=== PATIENT | female | born 1935 | race Caucasian/White ===

== ENCOUNTER 2017-05-11 05:56 | Emergency (ER) | payer MEDICARE, BC ==
[2017-05-11 06:04] VITALS: BP 167/106
[2017-05-11] MEDS ORDERED: Magnesium Citrate Solution 296 ML Bottle PO ONE (06:44)
--- NOTE | 2017-05-11 06:47 | EDM.PDOC ---
ED HPI GENERAL MEDICAL PROBLEM - General Chief Complaint: Gastrointestinal Problem Stated Complaint: CONSTIPATED Time Seen by Provider: 05/11/17 06:23 Source of Information: Reports: Patient, RN Notes Reviewed - History of Present Illness INITIAL COMMENTS - FREE TEXT/NARRATIVE: 81-year-old lady comes in with concerns about constipation. She has had long- standing difficulty with chronic constipation. She's been having just very small amounts of BM off and on for about the past week, not as much his usual. Her regular provider is out of town. Going into the she wants to deal with this now. No abdominal pain or cramping. No nausea or vomiting. She's been eating and drinking satisfactorily. She admits that she likely does not drink enough water daily basis. No other concerns at this time. Abdominal Pain Score (Numeric/FACES): 5 - Related Data Allergies Allergy/AdvReac Type Severity Reaction Status Date / Time No Known Allergies Allergy Verified 05/11/17 06:04 Home Meds: Home Meds ClonazePAM [KlonoPIN] 0.5 mg PO BID 11/21/13 [History] Omeprazole 20 mg PO DAILY 11/21/13 [History] Risedronate [Actonel] 35 mg PO ASDIRECTED 11/21/13 [History] Aspirin/Acetaminophen/Caffeine [Ra Pain Reliever Tablet] 2 each PO Q4H PRN 05/11 [History] Calcium Carbonate/Vitamin D3 [Calcium 500 + Vit D 200 Tablet] 1 each PO BID [History] Ondansetron [Zofran ODT] 4 mg PO Q6H PRN 05/11/17 [History] Polyethylene Glycol 3350 [MiraLAX] 17 gm PO DAILY 05/11/17 [History] Sennosides/Docusate Sodium [Senna S Tablet] 1 each PO DAILY 05/11/17 [History] Venlafaxine [Effexor XR] 150 mg PO DAILY 05/11/17 [History] busPIRone [Buspar] 5 mg PO BID 05/11/17 [History] traMADol HCl [Tramadol HCl] 50 mg PO Q6H PRN 05/11/17 [History] Past Medical History Gastrointestinal History: Reports: Chronic Constipation, Hiatal Hernia Neurological History: Reports: Other (See Below) Other Neuro History: brain tumor Psychiatric History: Reports: Anxiety, Depression Oncologic (Cancer) History: Reports: Brain, Breast - Past Surgical History Female Surgical History: Reports: Hysterectomy Social & Family History - Tobacco Use Smoking Status *Q: Never Smoker Second Hand Smoke Exposure: No - Alcohol Use Days Per Week of Alcohol Use: 1 Number of Drinks Per Day: 1 Total Drinks Per Week: 1 - Recreational Drug Use Recreational Drug Use: No ED ROS GENERAL - Review of Systems Review Of Systems: See Below Constitutional: Denies: Fever, Chills HEENT: Reports: No Symptoms Respiratory: Denies: Shortness of Breath, Cough Cardiovascular: Denies: Chest Pain GI/Abdominal: Reports: Constipation. Denies: Abdominal Pain, Nausea, Vomiting Musculoskeletal: Reports: No Symptoms Skin: Reports: No Symptoms Neurological: Denies: Trouble Speaking, Weakness ED EXAM, GI/ABD - Physical Exam Exam: See Below General Appearance: Alert, No Apparent Distress Throat/Mouth: Normal Inspection, Normal Oropharynx Head: No: Facial Swelling Neck: Supple, Full Range of Motion Respiratory/Chest: No Respiratory Distress, Lungs Clear Cardiovascular: Regular Rate, Rhythm GI/Abdominal Exam: Soft, Non-Tender. No: Guarding Rectal (Female) Exam: Normal Exam, Normal Rectal Tone, Other (Small amount of soft brown stool present, no unusual mass or tenderness palpable) Neurological: Alert, No Motor/Sensory Deficits Skin Exam: Warm, Dry, Normal Color Course - Vital Signs Last Recorded V/S: Last Vital Signs Temp 97.7 F 05/11/17 05:59 Pulse 89 05/11/17 05:59 Resp 17 05/11/17 05:59 BP 167/106 H 05/11/17 05:59 Pulse Ox 97 05/11/17 05:59 - Orders/Labs/Meds Meds: Medications Discontinued Medications Generic Name Dose Route Start Last Admin Trade Name Freq PRN Reason Stop Dose Admin Magnesium Citrate 296 ml 05/11/17 06:44 Citrate Of Magnesia PO 05/11/17 06:45 ONETIME ONE Departure - Departure Time of Disposition: 06:44 Disposition: Home, Self-Care 01 Condition: Fair Clinical Impression: Constipation - Discharge Information Instructions: Constipation, Adult Referrals: James Cooley Jr, MD [Primary Care Provider] - Forms: ED Department Discharge Additional Instructions: Drink plenty of water to maintain hydration, continue prunes and prune juice, go ahead and stop the senna for now, I do recommend he take a stool softener Colace available OTC once or twice daily on a regular basis, go back to taking MiraLAX daily as needed. Follow-up clinic as needed if symptoms not improving or return to ED as needed if symptoms worsening in any way.
== END 2017-05-11 06:54 | disposition home or self-care (01) ==
LOC: JD.ED 05:56
DX: K59.00 Constipation, unspecified (principal); F41.9 Anxiety disorder, unspecified; F32.9 Major depressive disorder, single episode, unspecified; Z90.710 Acquired absence of both cervix and uterus; Z79.82 Long term (current) use of aspirin; Z79.899 Other long term (current) drug therapy
CPT/HCPCS: 99283; A9270

== ENCOUNTER 2017-07-19 13:55 | Emergency (ER) | payer MEDICARE, BC ==
[2017-07-19 14:03] VITALS: BP 144/89
--- NOTE | 2017-07-19 14:21 | EDM.PDOC ---
ED HPI GENERAL MEDICAL PROBLEM - General Chief Complaint: Lower Extremity Injury/Pain Stated Complaint: RIGHT LEG INJURY Time Seen by Provider: 07/19/17 14:01 Source of Information: Reports: Patient, Family () History Limitations: Reports: Physical Impairment (Dysarthric speech, following brain tumor excision) - History of Present Illness INITIAL COMMENTS - FREE TEXT/NARRATIVE: The patient states that she rolled out of bed sometime around 11:30 to noon today, somehow falling onto her right leg. She states that it happened so fast, she is not sure how exactly it happened. She presents with pain to her mid- right leg. She states that due to peripheral neuropathy, she cannot feel too much with her leg, and it does not hurt much while she is lying down, however, she is unable to bear weight. No prior right leg injury, and the patient is otherwise uninjured today. The patient's last oral solid food intake was around 13:00 this afternoon. The patient's PCP is Dr. James Cooley. Right Lower Leg Pain Score (Numeric/FACES): 6 - Related Data Allergies Allergy/AdvReac Type Severity Reaction Status Date / Time No Known Allergies Allergy Verified 07/19/17 14:03 Home Meds: Home Meds ClonazePAM [KlonoPIN] 0.5 mg PO BID 11/21/13 [History] Omeprazole 20 mg PO DAILY 11/21/13 [History] Aspirin/Acetaminophen/Caffeine [Ra Pain Reliever Tablet] 2 each PO Q4H PRN 05/11 [History] Calcium Carbonate/Vitamin D3 [Calcium 500 + Vit D 200 Tablet] 1 each PO BID [History] Ondansetron [Zofran ODT] 4 mg PO Q6H PRN 05/11/17 [History] Polyethylene Glycol 3350 [MiraLAX] 17 gm PO DAILY 05/11/17 [History] Sennosides/Docusate Sodium [Senna S Tablet] 1 each PO DAILY 05/11/17 [History] busPIRone [Buspar] 5 mg PO BID 05/11/17 [History] traMADol HCl [Tramadol HCl] 50 mg PO Q6H PRN 05/11/17 [History] Acetaminophen/HYDROcodone [Erie 325-5 MG] 1 - 2 tab PO Q6H PRN #20 tablet 07/19 [Rx] Aspirin 325 mg PO DAILY 07/19/17 [History] DULoxetine [Cymbalta] 20 mg PO BEDTIME 07/19/17 [History] Gabapentin [Neurontin] 400 mg PO TID 07/19/17 [History] Linaclotide [Linzess] 145 mcg PO DAILY 07/19/17 [History] Lubiprostone [Amitiza] 24 mcg PO BIDMEALS 07/19/17 [History] Risedronate Sodium 35 mg PO WEEKLY 07/19/17 [History] Past Medical History Gastrointestinal History: Reports: Hiatal Hernia Neurological History: Reports: Neuropathy, Peripheral Psychiatric History: Reports: Anxiety, Depression 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), Breast (left) - Past Surgical History HEENT Surgical History: Reports: Cataract Surgery, Tonsillectomy Female Surgical History: Reports: Hysterectomy, Salpingo-Oophorectomy Oncologic Surgical History: Reports: Mastectomy (left), Other (See Below) ( Astrocytoma excision January 2015) Social & Family History - Tobacco Use Smoking Status *Q: Never Smoker Second Hand Smoke Exposure: No - Caffeine Use Caffeine Use: Reports: None - Alcohol Use Alcohol Use History: Yes Alcohol Use Frequency: Socially - Recreational Drug Use Recreational Drug Use: No - Living Situation & Occupation Living situation: Reports: , with Spouse Occupation: Retired Review of Systems - Review of Systems Review Of Systems: ROS reveals no pertinent complaints other than HPI. ED EXAM, GENERAL - Physical Exam Exam: See Below Exam Limited By: No Limitations General Appearance: Alert, WD/WN, No Apparent Distress Extremities: Other (Considerable swelling and ecchymosis noted to the proximal anterolateral right leg. No significant tenderness. No obvious bony deformity. Vascular status of the right lower extremity appears to be intact.) Course - Vital Signs Last Recorded V/S: Last Vital Signs Temp 36.6 C 07/19/17 14:00 Pulse 80 07/19/17 17:11 Resp 18 07/19/17 17:11 BP 144/89 H 07/19/17 14:00 Pulse Ox 96 07/19/17 17:11 - Orders/Labs/Meds Orders: Active Orders 24 hr Category Date Time Status Tibia Fibula Rt [CR] Stat Exams 07/19/17 14:14 Taken DME for Discharge [COMM] Stat Oth 07/19/17 16:09 Ordered Meds: Medications Discontinued Medications Generic Name Dose Route Start Last Admin Trade Name Jacquelyn PRN Reason Stop Dose Admin Hydromorphone HCl 0.5 mg 07/19/17 14:41 07/19/17 15:02 Dilaudid IVPUSH 07/19/17 14:42 0.5 mg ONETIME ONE Administration Sodium Chloride 1,000 mls @ 100 mls/hr 07/19/17 14:45 07/19/17 15:08 Normal Saline IV 100 mls/hr ASDIRECTED ABY Administration Ondansetron HCl 4 mg 07/19/17 14:41 07/19/17 15:01 Zofran IVPUSH 07/19/17 14:42 4 mg ONETIME ONE Administration - Re-Assessments/Exams Free Text/Narrative Re-Assessment/Exam: 07/19/17 14:34 4-view radiographs of the right tibia and fibula appear to demonstrate a longitudinal fracture of the proximal tibia, perhaps extending to the tibial plateau, although this is only seen on the lateral view. No other bony injury is identified. Formal read per the Radiologist pending. To further evaluate the potential tibial fracture, I have ordered a CT scan of the right leg. 07/19/17 14:39 The above plan was discussed with the patient and her . The patient is stating that she is starting to develop more significant leg pain and nausea. I have asked the nurse to place an IV, and will order some Dilaudid, Zofran, and IV fluid. We will keep her npo. 07/19/17 16:04 CT of the right tibia and fibula is read by Dr. Arita as: 1. Depressed lateral tibial plateau fracture with comminution. 2. Additional fracture extension from the lateral tibial plateau more distally within the lateral cortex which is nondisplaced and stops at approximately the junction of the mid and proximal one third diaphysis. 3. Soft tissue swelling. Other incidental findings. 07/19/17 16:[address] English at 16:06. Because the fracture is nondisplaced, he does not believe it will likely require surgery. He is recommending a knee immobilizer and crutches, and have the patient follow-up with him tomorrow. He can prescribe a wheelchair at that time, if necessary. 07/19/17 16:17 The above plan was discussed with the patient and her . The patient states that due to her brain surgery, she is not coordinated enough to be able to use crutches, a walker, or cane, and will need a wheelchair. We are endeavoring to see if [employer] can deliver a wheelchair tonight. The patient will require a wheelchair because her depressed tibial plateau fracture will prevent her from weightbearing on her right lower extremity, and she will be at significant risk of injuring herself if she attempts to balance herself on her left lower extremity alone. As above, she is not capable of using a walker or cane. The patient's indicated that the patient has been in a wheelchair in their home before, and that their home can accommodate a wheelchair. A wheelchair will significantly increase the ability of the patient to perform her ADLs. The patient is willing to use a wheelchair, and, in fact, requests a wheelchair. The patient is likely capable of manually using a wheelchair, however, her is available, as well. The patient will need pain medication. Due to her age and comorbidities, I recommended tramadol, however, the patient stated that she has developed tolerance to tramadol, and that it no longer works for her. I will therefore prescribe Erie. 07/19/17 16:25 Notified that [employer] is able to provide a wheelchair. The patient is going to get that now. Departure - Departure Time of Disposition: 16:19 Disposition: Home, Self-Care 01 Condition: Fair Clinical Impression: Tibial plateau fracture, right, Fracture of proximal end of right tibia - Discharge Information Prescriptions: Acetaminophen/HYDROcodone [Erie 325-5 MG] 1 - 2 tab PO Q6H PRN #20 tablet PRN Reason: Pain (Severe 7-10) Instructions: Tibial Plateau Fracture With Rehab-[facility] Referrals: James Cooley Jr, MD [Primary Care Provider] - Francesco English MD [Physician] - Forms: ED Department Discharge Additional Instructions: You were seen in the emergency room after falling and injuring her right leg. Workup in the ER included x-rays of your right leg, followed by a CT scan of your right leg. The x-rays and CT scan confirm that you have a nondisplaced fracture of your tibial plateau and proximal tibia. Your case was discussed with the Orthopedic Surgeon Dr. English. He does not feel that surgery is necessary, however, he does want you in a knee immobilizer, and you are not to bear weight on your right leg. You will need to get around using a wheelchair. You have been prescribed the narcotic pain reliever Erie. Take 1-2 tablets up to every 6 hours, as needed for pain. Erie will likely cause constipation, so consider taking a stool softener. DO NOT TAKE BOTH NORCO AND TRAMADOL. Follow-up with Dr. English in his office tomorrow, 07/20/2017. If any other problems, please do not hesitate to return to the ER. - My Orders Last 24 Hours: My Active Orders 07/19/17 14:14 Tibia Fibula Rt [CR] Stat 07/19/17 16:09 DME for Discharge [COMM] Stat - Assessment/Plan Last 24 Hours: My Active Orders 07/19/17 14:14 Tibia Fibula Rt [CR] Stat 07/19/17 16:09 DME for Discharge [COMM] Stat
[2017-07-19] MEDS ORDERED: Ondansetron 4 MG/2 ML SDV IVPUSH ONE (14:41)
[2017-07-19] MEDS ORDERED: HYDROmorphone 0.5 MG/0.5 ML SYRINGE IVPUSH ONE (14:41)
[2017-07-19] MEDS ORDERED: Sodium Chloride 0.9% 1,000 ML IV SCH (14:45)
--- NOTE | 2017-07-19 15:53 | CT ---
CT right tibia and fibula: Multiple axial sections were obtained to the right tibia and fibula. Reconstructed sagittal and coronal images were reviewed. Depressed lateral tibial plateau fracture is noted. Depression is noted by about 2.4 cm. Multiple small comminuted fragments are seen. There is a fracture line extending from the lateral tibial plateau fracture more inferior which is nondisplaced to down to approximately the junction of the mid and proximal one third diaphysis. Diffuse soft tissue swelling is noted. Degenerative cyst noted within the patella. Impression: 1. Depressed lateral tibial plateau fracture with comminution. 2. Additional fracture extension from the lateral tibial plateau more distally within the lateral cortex which is nondisplaced and stops at approximately the junction of the mid and proximal one third diaphysis. 3. Soft tissue swelling. Other incidental findings. Diagnostic code #3
--- NOTE | 2017-07-20 11:59 | CR ---
Right tibia and fibula: Two views of the right tibia and fibula were obtained. Impacted lateral tibial plateau fracture is seen. Additional nondisplaced fracture line extends more distal within the tibia. Soft tissue swelling is identified. No additional abnormality is appreciated. Impression: 1. Tibial fracture as noted above. Soft tissue swelling. Diagnostic code #3
== END 2017-07-19 17:12 | disposition home or self-care (01) ==
LOC: JD.ED 13:55
DX: S82.144A Nondisplaced bicondylar fracture of right tibia, initial encounter for closed fracture (principal); Z79.899 Other long term (current) drug therapy; Z79.82 Long term (current) use of aspirin; W20.8XXA Other cause of strike by thrown, projected or falling object, initial encounter
CPT/HCPCS: 73590; 73700; 96361; 96374; 96375; 99284; J1170; J2405; J7040

== ENCOUNTER 2017-07-19 18:18 | Emergency (ER) | payer MEDICARE, BC ==
[2017-07-19 18:29] VITALS: BP 115/70
[2017-07-19] MEDS ORDERED: Sodium Chloride 0.9% 1,000 ML IV ONE (18:33)
[2017-07-19] MEDS ORDERED: Ondansetron 4 MG/2 ML SDV IVPUSH ONE (18:42)
--- NOTE | 2017-07-19 18:42 | EDM.PDOC ---
ED HPI GENERAL MEDICAL PROBLEM <Colten Mcpherson - Last Filed: 07/19/17 21:33> - General Source of Information: Reports: Patient, Family () History Limitations: Reports: No Limitations <Rodrigo Reyes - Last Filed: 07/20/17 18:58> - General Chief Complaint: Syncope Stated Complaint: [facility] Time Seen by Provider: 07/19/17 18:25 - History of Present Illness INITIAL COMMENTS - FREE TEXT/NARRATIVE: The patient was seen by me in this ED earlier this afternoon after essentially falling out of bed this morning, injuring her right leg. Workup included an x- ray and CT scan of her right leg, confirming a depressed lateral tibial plateau fracture with comminution and an additional fracture extending from the lateral tibial plateau more distally within the lateral cortex, stopping at the junction of the mid and proximal one third diaphysis. The patient was given a total of 0.5 mg Dilaudid and 4 mg Zofran while in the ED, along with normal saline at 100 mL/hr. After discussing the case with Dr. English, the patient was placed into a knee immobilizer, and arrangements were made for the patient to get a wheelchair. The patient was discharged home with a prescription for Moon 5/325. The patient's states that they filled the prescription for the Moon, however, the patient has not taken any. Once home, the patient's took the patient to the bathroom in her wheelchair. After using the bathroom, she was returned to the wheelchair, and as the patient's was backing the patient out of the bathroom, she faited. Her head fell backwards, and she became unresponsive. The patient's called 911. He is not sure how long the patient remained unresponsive. At no time did the patient fall out of the wheelchair, and she is not injured from this event. Here in the ED, the patient states that she does not feel well. She is complaining of nausea. She is found to be orthostatic. The patient's PCP is Dr. James Cooley. (Rodrigo Reyes) - Related Data Allergies Allergy/AdvReac Type Severity Reaction Status Date / Time No Known Allergies Allergy Verified 07/19/17 18:22 Home Meds: Home Meds ClonazePAM [KlonoPIN] 0.5 mg PO BID 11/21/13 [History] Omeprazole 20 mg PO DAILY 11/21/13 [History] Aspirin/Acetaminophen/Caffeine [Ra Pain Reliever Tablet] 2 each PO Q4H PRN 05/11 [History] Calcium Carbonate/Vitamin D3 [Calcium 500 + Vit D 200 Tablet] 1 each PO BID [History] Ondansetron [Zofran ODT] 4 mg PO Q6H PRN 05/11/17 [History] Polyethylene Glycol 3350 [MiraLAX] 17 gm PO DAILY 05/11/17 [History] Sennosides/Docusate Sodium [Senna S Tablet] 1 each PO DAILY 05/11/17 [History] busPIRone [Buspar] 5 mg PO BID 05/11/17 [History] traMADol HCl [Tramadol HCl] 50 mg PO Q6H PRN 05/11/17 [History] Acetaminophen/HYDROcodone [[place] 325-5 MG] 1 - 2 tab PO Q6H PRN #20 tablet 07/19 [Rx] Aspirin 325 mg PO DAILY 07/19/17 [History] DULoxetine [Cymbalta] 20 mg PO BEDTIME 07/19/17 [History] Gabapentin [Neurontin] 400 mg PO TID 07/19/17 [History] Linaclotide [Linzess] 145 mcg PO DAILY 07/19/17 [History] Lubiprostone [Amitiza] 24 mcg PO BIDMEALS 07/19/17 [History] Risedronate Sodium 35 mg PO WEEKLY 07/19/17 [History] Past Medical History HEENT History: Reports: Impaired Vision Gastrointestinal History: Reports: Hiatal Hernia Neurological History: Reports: Neuropathy, Peripheral Psychiatric History: Reports: Anxiety, Depression 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), Breast (left) - Past Surgical History HEENT Surgical History: Reports: Cataract Surgery, Tonsillectomy Female Surgical History: Reports: Hysterectomy, Salpingo-Oophorectomy Oncologic Surgical History: Reports: Mastectomy (left), Other (See Below) ( Astrocytoma excision January 2015) <Rodrigo Reyes - Last Filed: 07/20/17 18:58> Social & Family History - Tobacco Use Smoking Status *Q: Never Smoker - Caffeine Use Caffeine Use: Reports: Coffee - Alcohol Use Alcohol Use History: Yes Alcohol Use Frequency: Socially - Recreational Drug Use Recreational Drug Use: No - Living Situation & Occupation Living situation: Reports: , with Spouse Occupation: Retired <Rodrigo Reyes - Last Filed: 07/20/17 18:58> ED ROS GENERAL - Review of Systems Review Of Systems: ROS reveals no pertinent complaints other than HPI. <Rodrigo Reyes - Last Filed: 07/20/17 18:58> - Physical Exam Exam: See Below Exam Limited By: No Limitations General Appearance: Alert, WD/WN, No Apparent Distress Eye Exam: Bilateral Eye: EOMI, Normal Inspection Ears: Normal External Exam, Hearing Grossly Normal Nose: Normal Inspection, No Blood Throat/Mouth: Normal Inspection, Normal Lips, Normal Voice, No Airway Compromise Head Exam: Atraumatic, Normocephalic Neck: Normal Inspection, Full Range of Motion Respiratory/Chest: No Respiratory Distress, Lungs Clear, Normal Breath Sounds, No Accessory Muscle Use Cardiovascular: Normal Peripheral Pulses, Regular Rate, Rhythm, No Gallop, No JVD, No Murmur, No Rub GI/Abdominal: Normal Bowel Sounds, Soft, Non-Tender, No Organomegaly, No Distention, No Abnormal Bruit, No Mass (Female) Exam: Deferred Rectal (Female) Exam: Deferred Neuro Exam (Abbreviated): Alert, Oriented, Normal Cognition, No Motor/Sensory Deficits, Other (Somewhat dysarthric speech, normal for the patient following her brain tumor) Extremities: Other (Right lower extremity with a knee immobilizer in place) Psychiatric: Normal Affect Skin Exam: Warm, Dry, Intact, Normal Color, No Rash <Rodrigo Reyes - Last Filed: 07/20/17 18:58> EKG INTERPRETATION EKG Date: 07/19/17 Time: 19:10 Rhythm: NSR Rate (Beats/Min): 84 [place]: Normal P-Wave: Present QRS: Other (Initial poor R-wave progression noted.Criteria for left ventricular hypertrophy pattern.) ST-T: Normal <Colten Mcpherson - Last Filed: 07/19/17 21:33> <Rodrigo Reyes - Last Filed: 07/20/17 18:58> EKG Interpretation Comments: Borderline ECG. (Colten Mcpherson) Course <Colten Mcpherson - Last Filed: 07/19/17 21:33> <Rodrigo Reyes - Last Filed: 07/20/17 18:58> - Vital Signs Last Recorded V/S: Last Vital Signs Temp 36.4 C 07/19/17 18:24 Pulse 81 07/19/17 18:24 Resp 18 07/19/17 18:24 BP 115/70 07/19/17 18:24 Pulse Ox 96 07/19/17 18:24 Orthostatic Blood Pressure [ 150/80 Standing] Orthostatic Blood Pressure [ 140/99 Sitting] Orthostatic Blood Pressure [ 126/87 Supine] - Orders/Labs/Meds Orders: Active Orders 24 hr Category Date Time Status EKG Documentation Completion [RC] STAT Care 07/19/17 18:55 Active Orthostatic Vital Signs [RC] STAT Care 07/19/17 18:32 Active Orthostatic Vital Signs [RC] STAT Care 07/19/17 18:34 Active Labs: Laboratory Tests 07/19/17 07/19/17 Range/Units 19:55 19:55 WBC 9.78 (3.98-10.04) K/mm3 RBC 3.97 L (3.98-5.22) M/mm3 Hgb 12.1 (11.2-15.7) gm/L Hct 36.2 (34.1-44.9) % MCV 91.2 (79.4-94.8) fl MCH 30.5 (25.6-32.2) pg MCHC 33.4 (32.2-35.5) g/dl RDW Std Deviation 41.4 (36.4-46.3) fL Plt Count 164 L (182-369) K/mm3 MPV 9.2 L (9.4-12.3) fl Neutrophils % (Manual) 74 H (40-60) % Band Neutrophils % 0 (0-10) % Lymphocytes % (Manual) 18 L (20-40) % Atypical Lymphs % 0 % Monocytes % (Manual) 6 (2-10) % Eosinophils % (Manual) 2 (0.7-5.8) % Basophils % (Manual) 0 L (0.1-1.2) Platelet Estimate Adequate Plt Morphology Comment Normal RBC Morph Comment Normal Sodium 148 H (136-145) mEq/L Potassium 4.4 (3.5-5.1) mEq/L Chloride 111 H (98-107) mEq/L Carbon Dioxide 28 (21-32) mEq/L Anion Gap 13.4 (5-15) BUN 17 (7-18) mg/dL Creatinine 0.8 (0.55-1.02) mg/dL Est Cr Clr Drug Dosing 49.00 mL/min Estimated GFR (MDRD) > 60 (>60) mL/min BUN/Creatinine Ratio 21.3 H (14-18) Glucose 112 (83-115) mg/dL Calcium 8.7 (8.5-10.1) mg/dL Magnesium 1.5 L (1.8-2.4) mg/dl Total Bilirubin 0.3 (0.2-1.0) mg/dL AST 25 (15-37) U/L ALT 33 (14-59) U/L Alkaline Phosphatase 63 (46-116) U/L Troponin I < 0.017 (0.00-0.056) ng/mL Total Protein 6.3 L (6.4-8.2) g/dl Albumin 3.6 (3.4-5.0) g/dl Globulin 2.7 gm/dL Albumin/Globulin Ratio 1.3 (1-2) Meds: Medications Discontinued Medications Generic Name Dose Route Start Last Admin Trade Name Freq PRN Reason Stop Dose Admin Sodium Chloride 1,000 mls @ 999 mls/hr 07/19/17 18:33 07/19/17 18:40 Normal Saline IV 07/19/17 19:33 999 mls/hr ONETIME ONE Administration Sodium Chloride 500 mls @ 999 mls/hr 07/19/17 20:26 07/19/17 20:37 Normal Saline IV 07/19/17 20:56 999 mls/hr .BOLUS ONE Administration Ondansetron HCl 4 mg 07/19/17 18:42 07/19/17 18:49 Zofran IVPUSH 07/19/17 18:43 4 mg ONETIME ONE Administration Ondansetron HCl 4 mg 07/19/17 20:45 07/19/17 20:55 Zofran Odt PO 07/19/17 20:46 4 mg ONETIME ONE Administration Oxycodone/Acetaminophen 1 tab 07/19/17 20:45 07/19/17 20:52 Percocet 325-5 Mg PO 07/19/17 20:46 1 tab ONETIME ONE Administration - Re-Assessments/Exams Free Text/Narrative Re-Assessment/Exam: 07/19/17 20:22 Patient is quite dysarthric and tends to ramble a good deal. At present she doesn't want anything for pain in her right knee although it is quite painful. Waiting for blood tests that were apparently drawn 25 minutes ago. I still question by history whether or not she had an atypical seizure when she passed out. Head was tilted backwards and she was unresponsive for 4-5 minutes. The only thing else that would do this would be a severe bradycardia. Blood pressure is currently 142/68. This sinus with no murmurs detected. Labs are pending. 07/19/17 20:33 Labs are back. White count is 9.78 differential pending. Hemoglobin is 12.1 with hematocrit of 36.2. Platelet count is 164,000. Sodium 148 slightly elevated potassium 4.4 chloride 111. Bicarbonate is 28. And a gap is 13.4 BUN is 17. Creatinine 0.8. Glucose was 112. Calcium is 8.7. Magnesium slightly low at 1.5. Total bilirubin is 0.3. AST is 25 ALT is 33 alk phosphatase normal at 63. Troponin I is less than 0.017. Nurses report that she had a drop of 30 points systolically in her blood pressure from lying to sitting position. Still suggesting that she is orthostatic. She'll be given another 500 mils of normal saline. 07/19/17 20:45 patient was offered pain medication earlier but has now decided she would like some analgesia. Will give her 1 Percocet 5/325 milligram tablet and she is quite sensitive to pain medication Zofran 4 mg sublingual to prevent any nausea vomiting and she has very little to eat yet today. 07/19/17 21:33 has had a total of 1500 mils of normal saline and is feeling much improved. They will try things at home however I think it may be difficult and she may require hospital management and temporary care in a detention situation. She is to see Dr. English orthopedic surgeon tomorrow. Discharged home in the care of her . (Colten Mcpherson) 07/19/17 19:[address] Mcpherson, and care of the patient turned over to him at this time, for change of shift. (Rodrigo Reyes) Departure - Departure Time of Disposition: 21:34 Condition: Fair <Colten Mcpherson - Last Filed: 07/19/17 21:33> <Rodrigo Reyes - Last Filed: 07/20/17 18:58> - Departure Disposition: Home, Self-Care 01 Clinical Impression: Syncope and collapse, Vasovagal syncope - Discharge Information Instructions: Syncope, [id number] Referrals: PCP,Unknown [Primary Care Provider] - Forms: ED Department Discharge Additional Instructions: Evaluation the emergent today in regards to first of all injury to your right knee when you fell from bed this morning. Discovered to have a tibial plateau fracture of the right side of your knee. You're to follow-up with orthopedic surgeon Dr. English tomorrow. It is my understanding you're to phone the clinic in the morning at [phone] to arrange an appointment. Pain management as needed at home. Ice pack to the knee for one half hour out of every 4 hours for the next 3 days. Evaluation tonight due to passing out and collapsing at home. The etiology or the cause for this is unclear. There was no seizure activity although I still have some concerns you may have had an atypical seizure because of your history of brain tumor. He found to be quite low on blood fluids and with pain you may well have had what we call a vasovagal attack where your heart rate slows down tremendously and then of course drops her blood pressure. Without adequate blood pressure to your brain and causes us to pass out. You received a liter and a half fluids well in the ED. All the labs taken in the ED today were normal. Continues to drink plenty of fluids and stay hydrated. Gatorade Powerade is a Source of replenishing fluids similar to IV fluids. - My Orders Last 24 Hours: My Active Orders 07/19/17 18:32 Orthostatic Vital Signs [RC] STAT 07/19/17 18:34 Orthostatic Vital Signs [RC] STAT 07/19/17 18:55 EKG Documentation Completion [RC] STAT - Assessment/Plan Last 24 Hours: My Active Orders 07/19/17 18:32 Orthostatic Vital Signs [RC] STAT 07/19/17 18:34 Orthostatic Vital Signs [RC] STAT 07/19/17 18:55 EKG Documentation Completion [RC] STAT
[2017-07-19] MEDS ORDERED: Sodium Chloride 0.9% 500 ML IV ONE (20:26)
[2017-07-19] MEDS ORDERED: Ondansetron 4 MG Tab.DIS PO ONE (20:45)
[2017-07-19] MEDS ORDERED: Acetaminophen/oxyCODONE 325-5 MG Tab PO ONE (20:45)
== END 2017-07-19 21:44 | disposition home or self-care (01) ==
LOC: JD.ED 18:18
DX: R55 Syncope and collapse (principal); S82.141A Displaced bicondylar fracture of right tibia, initial encounter for closed fracture; Z79.899 Other long term (current) drug therapy; Z79.82 Long term (current) use of aspirin; W05.0XXA Fall from non-moving wheelchair, initial encounter
CPT/HCPCS: 36415; 80053; 83735; 84484; 85007; 85027; 93005; 96361; 96374; 99284; A9270; J2405; J7040

== ENCOUNTER 2017-11-03 17:03 | Emergency (ER) | payer MEDICARE, BC ==
[2017-11-03 17:46] VITALS: BP 141/95
--- NOTE | 2017-11-03 19:06 | EDM.PDOC ---
ED HPI GENERAL MEDICAL PROBLEM - General Chief Complaint: Lower Extremity Injury/Pain Stated Complaint: RT ANKLE SWELLING Time Seen by Provider: 11/03/17 17:21 Source of Information: Reports: Patient History Limitations: Reports: No Limitations - History of Present Illness INITIAL COMMENTS - FREE TEXT/NARRATIVE: The patient presents with right ankle edema and discomfort. The patient had a tibia fracture in July and she had a micaela put in her leg by Dr Webster in [place]. She has been in the [facility] until last week and she can put weight on her leg for the past week. She noticed swelling today but her ankle has been tender for a few days. She has no known injury. Onset: Gradual Duration: Week(s): (1) Location: Reports: Lower Extremity, Right (ankle) Quality: Reports: Ache Severity: Mild Improves with: Reports: Immobilization Worsens with: Reports: Movement Associated Symptoms: Reports: No Other Symptoms Right Ankle Pain Score (Numeric/FACES): 0 - Related Data Allergies Allergy/AdvReac Type Severity Reaction Status Date / Time No Known Allergies Allergy Verified 11/03/17 17:46 Home Meds: Home Meds ClonazePAM [KlonoPIN] 0.5 mg PO BID 11/21/13 [History] Omeprazole 20 mg PO DAILY 11/21/13 [History] Aspirin/Acetaminophen/Caffeine [Ra Pain Reliever Tablet] 2 each PO Q4H PRN 05/11 [History] Calcium Carbonate/Vitamin D3 [Calcium 500 + Vit D 200 Tablet] 1 each PO BID [History] Ondansetron [Zofran ODT] 4 mg PO Q6H PRN 05/11/17 [History] Polyethylene Glycol 3350 [MiraLAX] 17 gm PO DAILY 05/11/17 [History] Sennosides/Docusate Sodium [Senna S Tablet] 1 each PO DAILY 05/11/17 [History] busPIRone [Buspar] 5 mg PO BID 05/11/17 [History] traMADol HCl [Tramadol HCl] 50 mg PO Q6H PRN 05/11/17 [History] Acetaminophen/HYDROcodone [[place] 325-5 MG] 1 - 2 tab PO Q6H PRN #20 tablet 07/19 [Rx] Aspirin 325 mg PO DAILY 07/19/17 [History] DULoxetine [Cymbalta] 20 mg PO BEDTIME 07/19/17 [History] Gabapentin [Neurontin] 400 mg PO TID 07/19/17 [History] Linaclotide [Linzess] 145 mcg PO DAILY 07/19/17 [History] Lubiprostone [Amitiza] 24 mcg PO BIDMEALS 07/19/17 [History] Risedronate Sodium 35 mg PO WEEKLY 07/19/17 [History] Past Medical History HEENT History: Reports: Impaired Vision Gastrointestinal History: Reports: Hiatal Hernia Musculoskeletal History: Reports: Other (See Below) Other Musculoskeletal History: neuropathy Neurological History: Reports: Neuropathy, Peripheral Other Neuro History: brain tumor Psychiatric History: Reports: Anxiety, Depression Oncologic (Cancer) History: Reports: Brain, Breast - Past Surgical History HEENT Surgical History: Reports: Cataract Surgery, Tonsillectomy Female Surgical History: Reports: Hysterectomy, Salpingo-Oophorectomy Other Musculoskeletal Surgeries/Procedures:: Surgery to right leg Oncologic Surgical History: Reports: Mastectomy, Other (See Below) Social & Family History - Family History Family Medical History: Noncontributory - Tobacco Use Smoking Status *Q: Never Smoker - Caffeine Use Caffeine Use: Reports: None - Recreational Drug Use Recreational Drug Use: No - Living Situation & Occupation Living situation: Reports: , with Spouse Occupation: Retired Review of Systems - Review of Systems Review Of Systems: See Below Constitutional: Reports: No Symptoms Eyes: Reports: No Symptoms Ears: Reports: No Symptoms Nose: Reports: No Symptoms Respiratory: Reports: No Symptoms Cardiovascular: Reports: No Symptoms GI/Abdominal: Reports: No Symptoms Genitourinary: Reports: No Symptoms Musculoskeletal: Reports: Other (Right ankle pain and edema) ED EXAM, GENERAL - Physical Exam Exam: See Below Exam Limited By: No Limitations General Appearance: Alert, No Apparent Distress Ears: Normal External Exam Nose: Normal Inspection Head: Atraumatic, Normocephalic Neck: Normal Inspection Respiratory/Chest: No Respiratory Distress Extremities: Other (Mild to moderate edema to her right ankle with mild pain upon palpaton. Good sensation and pulses distally.) Course - Vital Signs Last Recorded V/S: Last Vital Signs Temp 97.8 F 11/03/17 17:42 Pulse 84 11/03/17 17:42 Resp 18 11/03/17 17:42 BP 141/95 H 11/03/17 17:42 Pulse Ox 95 11/03/17 17:42 - Orders/Labs/Meds Orders: Active Orders 24 hr Category Date Time Status Ankle Min 3V Rt [CR] Stat Exams 11/03/17 19:04 Taken - Re-Assessments/Exams Free Text/Narrative Re-Assessment/Exam: 11/03/17 19:07 I ordered an US of her leg and an x-ray of her ankle. The US shows no DVT. I am waiting for the x-ray. 11/03/17 19:44 Her x-ray looks good. There is nothing acute just some osteopenia. The swelling could be from the prior injury and now she is weight bearing. I will have her elevate her ankle and put some ice on it after using it. Departure - Departure Time of Disposition: 19:45 Disposition: Home, Self-Care 01 Condition: Good Clinical Impression: Ankle edema - Discharge Information *PRESCRIPTION DRUG MONITORING PROGRAM REVIEWED*: No *COPY OF PRESCRIPTION DRUG MONITORING REPORT IN PATIENT EDMOND: No Referrals: James Cooley Jr, MD [Primary Care Provider] - 1 Week Forms: ED Department Discharge Additional Instructions: Elevate your ankle above your heart as much as you can for a couple days or if you see an swelling. You may also put some ice on your ankle for 15 minutes 3 times per day as needed. Please return if you are worse. - My Orders Last 24 Hours: My Active Orders 11/03/17 19:04 Ankle Min 3V Rt [CR] Stat - Assessment/Plan Last 24 Hours: My Active Orders 11/03/17 19:04 Ankle Min 3V Rt [CR] Stat
--- NOTE | 2017-11-03 19:17 | US ---
Right lower extremity deep venous ultrasound: Duplex and color flow imaging was obtained of the right common femoral, proximal greater saphenous, superficial femoral, popliteal, posterior tibial and peroneal veins. Left common femoral vein was also evaluated. Comparison: No prior venous exam is available. Findings: Normal phasic flow, augmentation and compression is seen. Impression: 1. No evidence of deep venous thrombosis within the right lower extremity or within the left common femoral vein. Diagnostic code #1
--- NOTE | 2017-11-05 07:14 | CR ---
Right ankle: Four views of the right ankle were obtained. Comparison: No prior ankle study. Plantar spur is seen. Ankle mortise is symmetric. Mild soft tissue swelling is noted. Osteopenia is also present. No acute fracture or dislocation is seen. Impression: 1. Findings as noted above. No acute bony abnormality is identified on right ankle exam. Diagnostic code #2
== END 2017-11-03 19:57 | disposition home or self-care (01) ==
LOC: JD.ED 17:03
DX: R60.0 Localized edema (principal); Z79.82 Long term (current) use of aspirin; Z79.899 Other long term (current) drug therapy
CPT/HCPCS: 73610-26-RT; 73610-RT; 93971-26-RT; 93971-RT; 99284-25